=== PATIENT | female | born 1965 | race African-American/Black ===

== ENCOUNTER 2016-09-03 09:34 | Emergency (ER) | payer OTHER ==
[~2016-09-03] VITALS: Ht 157.5 cm; Wt 44.9 kg
[2016-09-03 09:38] VITALS: BP 111/75
--- NOTE | 2016-09-03 09:50 | ED SKIN/ALLERGY COMPLAINT ---
History of Present Illness General Chief Complaint: Skin Rash/ Abcess Stated Complaint: RED BUMP ON LEFT LEG THREE DAYS Source: patient Exam Limitations: no limitations Allergies Coded Allergies: codeine (Intermediate, LETHARGY, PROLONGED SEDATION 09/03/16) Triage Note: PT TO ED FOR SMALL RED, NON-RAISED RASH TO L CALF AREA SINCE THREE DAYS AGO WITH INCREASING IN SIZE. +ITCHINESS, PER PT, +CHILLS. AFEBRILE IN TRIAGE. Triage Nurses Notes Reviewed? yes Onset: Abrupt (2-3 DAYS) Duration: day(s): (2-3), constant, continues in ED, getting worse Timing: single episode today Severity: mild, moderate Severity Numbers: 7 (ITCHY, NOT PAINFUL) Location: extremities (LEFT LOWER) Possible Factors: exposure to allergen, insect bite, insect sting No Modifying Factors: none Associated Symptoms: rash, ITCHING LMP (ages 10-50): unknown : No Patient currently breastfeeds: No HPI: 51-year-old female with history of hypothyroidism and hypertension presents complaining of an itchy red spot on the left calf. Patient reports she first noticed the area 2 or 3 days ago and has becoming more itchy and larger. She denies any pain or discharge from the area trauma to the area or fever. No recent insect bites but she does have a dog that she pulls ticks off of frequently. She does report some intermittent chills. No recent trauma or recent surgery, estrogen use or personal history of DVt/PE. (EDENILSON VANCE PA-C) Vital Signs & Intake/Output Vital Signs & Intake/Output Vital Signs Date Time Temp Pulse Resp B/P B/P Pulse O2 O2 Flow FiO2 Mean Ox Delivery Rate 09/03 0938 97.8 48 15 111/75 99 Room Air Room Air Reconcile Medications Hydroxyzine HCl 50 MG TABLET 1 TAB PO QPM itching Levothyroxine Sodium 50 MCG TABLET 1 TAB PO DAILY AC THYROID (Reported) Losartan Potassium 50 MG TABLET 1 TAB PO DAILY HEART (Reported) (WOODROW ELIAS,LINDA) Past History Travel History Traveled to [place] past 21 day No Medical History Any Pertinent Medical History? see below for history Neurological: NONE EENT: NONE Cardiovascular: NONE Respiratory: NONE Gastrointestinal: NONE Hepatic: NONE Renal: NONE Musculoskeletal: NONE Psychiatric: NONE Endocrine: HYPOTHYROIDISM Blood Disorders: NONE Cancer(s): BREAST CANCER Surgical History Surgical History: none Psychosocial History Who do you live with Spouse What is your primary language Croatian Tobacco Use: Never used ETOH Use: denies use Illicit Drug Use: denies illicit drug use Family History Hx Contributory? No (EDENILSON VANCE PA-C) Review of Systems Review of Systems Constitutional: Reports: see HPI, chills. EENTM: Reports: no symptoms. Respiratory: Reports: no symptoms. Cardiovascular: Reports: no symptoms. GI: Reports: no symptoms. Genitourinary: Reports: no symptoms. Musculoskeletal: Reports: no symptoms. Skin: Reports: see HPI, rash. Neurological/Psychological: Reports: no symptoms. Hematologic/Endocrine: Reports: no symptoms. Immunologic/Allergic: Reports: no symptoms. All Other Systems: Reviewed and Negative (EDENILSON VANCE PA-C) Physical Exam Physical Exam General Appearance: well developed/nourished, no apparent distress, alert, awake Head: atraumatic, normal appearance Eyes: Bilateral: normal appearance, PERRL, EOMI. Ears, Nose, Throat: normal pharynx, normal ENT inspection, hearing grossly normal Neck: normal inspection, supple, full range of motion Respiratory: normal breath sounds, chest non-tender, no respiratory distress, lungs clear Cardiovascular: regular rate/rhythm, normal peripheral pulses Peripheral Pulses: 2+ radial (R), 2+ radial (L) Gastrointestinal: normal bowel sounds, soft, non-tender, no organomegaly Back: normal inspection, normal range of motion, no vertebral tenderness Extremities: normal inspection, normal capillary refill, normal range of motion, no edema, rash to left lower extremity Neurologic/Psych: no motor/sensory deficits, awake, alert, oriented x 3, normal gait, normal mood/affect Reflexes: 2+: knee (R), knee (L). Skin: rash (left lower leg) Skin Problem Location: lower extremities (posterior lower leg) Skin Problem Character: erythema, lesion Lymphatic: no anterior cervical dannie Comments: There is a 2.5 cm diameter erythematous lesion located on the posterior left lower leg. There is no swelling there is no tenderness palpation no induration no discharge no focal fluctuant areas. Full range of motion the left lower extremity intact. Neurovascular supply intact. (RAJIV PADILLA,EDENILSON) Progress Differential Diagnosis: abscess/cellulitis, allergic reaction, anaphylaxis, contact dermatitis, erythema multiforme, lyme disease, urticaria Plan of Care: Orders Procedure Date/time Status LYME TITRE 09/03 958 Active COMPREHENSIVE METABOLIC PANEL 09/03 958 Complete CBC WITHOUT DIFFERENTIAL 09/03 958 Complete Laboratory Tests 09/03/16 1005: Anion Gap 8, Estimated GFR 52 L, BUN/Creatinine Ratio 18.2, Glucose 73, Calcium 9.5, Total Bilirubin 0.5, AST 31, ALT 47, Alkaline Phosphatase 79, Total Protein 6.7, Albumin 4.2, Globulin 2.5, Albumin/Globulin Ratio 1.7, CBC w Diff NO MAN DIFF REQ, RBC 4.08 L, MCV 95.4, MCH 31.5 H, RDW 12.4, MPV 9.5, Gran % 74.2, Lymphocytes % 17.9 L, Monocytes % 7.5, Eosinophils % 0.3, Basophils % 0.1, Absolute Granulocytes 4.3, Absolute Lymphocytes 1.0 L, Absolute Monocytes 0.4, Absolute Eosinophils 0, Absolute Basophils 0, PUBS MCHC 33.0, Lyme Disease Antibody Pending 10:11 AM: Patient evaluated at this time rash seems to be allergic in origin. Patient does report history of tick exposure so she'll be screened for Lyme disease and basic blood work will be drawn. Currently no signs of abscess. Patient will be given 25 mg of Atarax by mouth 1 for itching. Will follow up on blood work. 11 AM; Blood work is back and shows mildly elevated creatinine and BUN GFR 52. Lyme titer is pending. Patient reports itchiness has been alleviated after 25 mg of Atarax. She elsie any pain. This supports diagnosis of an allergic rash. Heart rate was reassessed and was 62 bpm. She will follow up with her primary care doctor this week and continue Atarax as needed. Pt is in agreement with treatment plan and is non-toxic appearing at discharge. (RAJIV PADILLA,EDENILSON) Departure Departure Disposition: HOME OR SELF CARE Condition: Stable Clinical Impression Primary Impression: Rash and nonspecific skin eruption Referrals: SHASHI ELIAS,ENMANUEL Obrien (PCP/Family) Additional Instructions: Keep the area clean and dry. Use hydroxyzine as needed for itching. This may cause drowsiness monitor the area for spreading redness swelling pain or discharge. Follow-up appointment with her primary care doctor as soon as possible to review all blood work. Return to emergency department as needed. Departure Forms: Customer Survey General Discharge Information Prescriptions: Current Visit Scripts Hydroxyzine HCl 1 TAB PO QPM #30 TAB (RAJIV PADILLA,EDENILSON) PA/CATEGORY SPECIALIST Co-Sign Statement Statement: ED Attending supervision documentation- [] I saw and evaluated the patient. I have also reviewed all the pertinent lab results and diagnostic results. I agree with the findings and the plan of care as documented in the PA's/CATEGORY SPECIALIST's documentation. [X] I have reviewed the ED Record and agree with the PA's/CATEGORY SPECIALIST's documentation. [] Additions or exceptions (if any) to the PAs/CATEGORY SPECIALIST's note and plan are summarized below: [] (WOODROW ELIAS,LINDA)
[2016-09-03] MEDS ORDERED: LEVOTHYROXINE50 MCG PO (09:59)
[2016-09-03] MEDS ORDERED: LOSARTAN POTASS50 M1 PO (10:00)
[2016-09-03 10:26] LABS: ABSOLUTE BASOPHIL COUNT 0 /CUMM (0.0-0.2); ABSOLUTE EOSINOPHIL COUNT 0 /CUMM (0.0-0.7); ABSOLUTE GRANULOCYTE CT 4.3 /CUMM (1.4-6.5); ABSOLUTE MONOCYTE COUNT 0.4 /CUMM (0.10-0.60); BASOPHIL % 0.1 % (0.0-2.0); EOSINOPHIL % 0.3 % (0-5); GRANULOCYTE % 74.2 % (42.2-75.2); HEMATOCRIT 38.9 % (37-47); MEAN CORPUSCULAR HGB 31.5 PG (27.0-31.0); MEAN CORPUSCULAR VOLUME 95.4 FL (81.0-99.0); MEAN PLATELET VOLUME 9.5 FL (7.4-10.4); PLATELET COUNT 185 /CUMM (130-400); RBC DISTRIBUTION WIDTH 12.4 % (11.5-14.5); RED BLOOD CELL CT 4.08 /CUMM (4.20-5.40); WHITE BLOOD CELL COUNT 5.7 /CUMM (4.8-10.8)
[2016-09-03] MEDS ORDERED: HYDROXYZINE HCL50 M1 PO (11:00)
== END 2016-09-03 11:05 ==
LOC: ERH 09:34
PROVIDERS: Physician Assistant Medical
DX: R21 Rash and other nonspecific skin eruption (principal)
CPT/HCPCS: 86618